=== PATIENT | male | born 1975 | race Caucasian/White ===

== ENCOUNTER → 2017-07-30 | Outpatient (CLI) | payer MEDICAID ==
[~2017-07-30] MED LIST: IOPAMIDOL (ISOVUE-300) 100 ML BTL ONE
== END ==
LOC: FIMAGING 15:56
PROVIDERS: ATTEND Internal Medicine
DX: R60.9 Edema, unspecified (principal); N20.1 Calculus of ureter; K76.9 Liver disease, unspecified; K57.30 Diverticulosis of large intestine without perforation or abscess without bleeding; B20 Human immunodeficiency virus [HIV] disease; I25.10 Atherosclerotic heart disease of native coronary artery without angina pectoris
CPT/HCPCS: Q9967

== ENCOUNTER → 2017-09-21 | Outpatient (CLI) | payer MEDICAID | LOC: FIMAGING 11:24 | PROVIDERS: ATTEND Internal Medicine | DX: R59.0 Localized enlarged lymph nodes (principal); R63.5 Abnormal weight gain; G62.9 Polyneuropathy, unspecified; Z21 Asymptomatic human immunodeficiency virus [HIV] infection status ==

== ENCOUNTER → 2017-12-05 | Outpatient (CLI) | payer MEDICAID | LOC: FIMAGING 11:52 | PROVIDERS: ATTEND Internal Medicine | DX: R59.1 Generalized enlarged lymph nodes (principal); R60.9 Edema, unspecified; K76.9 Liver disease, unspecified; N20.1 Calculus of ureter | CPT/HCPCS: Q9967 ==